=== PATIENT | female | born 1970 | race Caucasian/White ===

== ENCOUNTER 2019-08-07 13:42 | Inpatient (IN) | payer BC ==
[2019-08-01 14:30] LABS: Basophils # (auto) 0 uL; Basophils % (auto) 0.4 % (0.0-2.0); Eosinophils # (auto) 0.1 uL; Eosinophils % (auto) 1.1 % (0.0-7.0); Hematocrit 41.1 % (36.0-46.0); Hemoglobin 13.8 g/dL (12.2-16.2); Lymphocytes # (auto) 2.4 uL; Lymphocytes % (auto) 28.9 % (10.0-50.0); Mean Corpuscular Hemoglobin 30.1 pg (28.0-32.0); Mean Corpuscular Hgb Conc. 33.4 g/dL (32.0-36.0); Monocytes # (auto) 0.5 uL; Monocytes % (auto) 6.4 % (0.0-12.0); Neutrophils # (auto) 5.2 uL; Neutrophils % (auto) 63.2 % (37.0-80.0); Platelet Count (auto) 282 10^3/uL (140-450); Red Blood Cells 4.57 10^6/uL (4.0-5.20); Red Cell Distribution Width 12.7 % (11.8-14.3); White Blood Cell 8.2 10^3/uL (4.4-10.8)
[2019-08-01 14:36] LABS: Urine Amorphous Crystal FEW /hpf (None Seen); Urine Bacteria FEW /hpf (None Seen); Urine Blood Negative /uL (Negative); Urine Mucus FEW (None Seen); Urine Specific Gravity 1.022 (1.001-1.035); Urine WBC 2 /hpf (0 - 5)
[2019-08-01 14:45] LABS: INR 0.96 (0.9-1.15); Partial Thromboplastin Time 29.8 sec (23.64-32.05)
[2019-08-01 14:53] LABS: Albumin 3.6 g/dL (3.4-5.0); Calcium 8.7 mg/dL (8.5-10.1); Potassium 4.3 mmol/L (3.5-5.1)
[2019-08-01 14:56] LABS: BUN/Creatinine Ratio 17.5; Bilirubin, Total 0.3 mg/dL (0.2-1.0); Total Protein 7.6 g/dL (6.4-8.2)
[~2019-08-07] VITALS: Ht 165.1 cm; Wt 95.2 kg
[~2019-08-07 13:42] MED LIST: CYAN100028 SL; ESTR0.1C5 VA; MULT-690 PO; PROB1CAP PO; PROG1CAP2 PO; VITA1CAP15 PO
[2019-08-07] MEDS ORDERED: ceFAZolin 1GM/50ML 100 ML IV ONE (18:31)
[2019-08-07] MEDS ORDERED: METHYLENE BLUE 0.5% 5MG/ML 10ml AMP IV ONE (18:33)
[2019-08-07] MEDS ORDERED: LIDOCAINE W/ EPINEPHRINE 1% 20ML VIAL ONE (18:33)
[2019-08-07] MEDS ORDERED: BUPIVACAINE 0.25% INJ 50ML VIAL ONE (18:33)
[2019-08-07] MEDS ORDERED: fentaNYL CITRATE 5 ML ONE (18:40)
[2019-08-07] MEDS ORDERED: fentaNYL CITRATE 100 MCG/2 ML VL ONE (18:40)
[2019-08-07] MEDS ORDERED: MIDAZOLAM HCL 1MG/1ML-2 ML VIAL ONE (18:40)
[2019-08-07] MEDS ORDERED: MEPERIDINE HCL (25 MG/ML) 1ML VIAL ONE (18:40)
[2019-08-07] MEDS ORDERED: MORPHINE SULF INJ 2 MG/ML SYRINGE 1ML IV PRN ×2 (18:45)
[2019-08-07] MEDS ORDERED: NITROGLYCERIN 0.4 MG SL TAB SL PRN ×2 (18:45)
[2019-08-07] MEDS ORDERED: HYDROcodone-ACET 5/325MG TAB PO PRN (18:45)
[2019-08-07] MEDS ORDERED: ceFAZolin 1GM/50ML 50 ML IV ONE (18:45)
[2019-08-07] MEDS ORDERED: MORPHINE SULFATE 4 MG/ML SYR/VIAL IV PRN ×2 (18:45→19:00)
[2019-08-07] MEDS ORDERED: ACETAMINOPHEN 500 MG TAB PO PRN (18:45)
[2019-08-07] MEDS ORDERED: SUCCINYLCHOLINE CHLORIDE 20 MG/ML 10ML VIAL IV ONE (18:51)
[2019-08-07] MEDS ORDERED: MIDAZOLAM HCL 1MG/1ML-2 ML VIAL IV PRN (19:00)
[2019-08-07] MEDS ORDERED: ePHEDrine SULFATE 50 MG/ML AMP IV PRN (19:00)
[2019-08-07] MEDS ORDERED: ONDANSETRON HCL 4 MG/2 ML VIAL IV PRN (19:00)
[2019-08-07] MEDS ORDERED: LABETALOL HCL 5 MG/ML 4ML SYRINGE IV PRN (19:00)
[2019-08-07] MEDS ORDERED: DexAMETHasone SOD PHOS 10MG/1ML VIAL INJ ONE (19:38)
[2019-08-07] MEDS ORDERED: PROPOFOL 10 MG/ML 20 ML IV ONE (21:17)
[2019-08-07] MEDS ORDERED: GLYCOPYRROLATE 0.2 MG/ML 1ML VIAL ONE (21:29)
[2019-08-07] MEDS ORDERED: NEOSTIGMINE 1 MG/ML INJ (10mg/10ML VIAL) ONE (21:29)
[2019-08-07] MEDS ORDERED: ONDANSETRON HCL 4 MG/2 ML VIAL ONE (21:57)
[2019-08-07] MEDS ORDERED: HYDROmorphone HCL 2 MG/ML VL ONE (22:18)
[2019-08-07] MEDS: HYDROmorphone HCL 2 MG/ML VL IV PRN ×2 (22:19→22:46)
[2019-08-07] MEDS: ONDANSETRON HCL 4 MG/2 ML VIAL IV PRN (23:01)
[2019-08-07] MEDS: SODIUM CHLORIDE 0.9% 1,000 ML IV SCH (23:30)
[2019-08-07 23:33] VITALS: BP 102/68
[2019-08-08] MEDS: SODIUM CHLORIDE 0.9% 1,000 ML IV SCH ×3 (02:21→18:03)
[2019-08-08] MEDS: ONDANSETRON HCL 4 MG/2 ML VIAL IV PRN ×3 (02:42→21:49)
[2019-08-08 03:13] LABS: Basophils # (auto) 0 uL; Basophils % (auto) 0.3 % (0.0-2.0); Eosinophils # (auto) 0 uL; Hematocrit 37.8 % (36.0-46.0); Hemoglobin 12.4 g/dL (12.2-16.2); Lymphocytes # (auto) 0.5 uL; Lymphocytes % (auto) 3.9 % (10.0-50.0); Mean Corpuscular Hemoglobin 29.6 pg (28.0-32.0); Mean Corpuscular Hgb Conc. 32.9 g/dL (32.0-36.0); Mean Corpuscular Volume 89.8 fL (80.0-100.0); Monocytes # (auto) 0.4 uL; Monocytes % (auto) 2.6 % (0.0-12.0); Neutrophils # (auto) 12.5 uL; Neutrophils % (auto) 93.2 % (37.0-80.0); Nucleated Red Blood Cells % 0.1 %; Platelet Count (auto) 240 10^3/uL (140-450); Red Blood Cells 4.21 10^6/uL (4.0-5.20); Red Cell Distribution Width 13.2 % (11.8-14.3); White Blood Cell 13.4 10^3/uL (4.4-10.8)
[2019-08-08] MEDS: PROMETHAZINE HCL 25 MG/ML 1ML IV PRN ×3 (03:34→18:03)
[2019-08-08] MEDS: HYDROmorphone HCL 2 MG/ML VL IV PRN ×5 (03:34→21:49)
[2019-08-08 05:00] VITALS: BP 122/62
[2019-08-08 08:00] VITALS: BP 116/66
[2019-08-08 09:01] VITALS: BP 116/66
[2019-08-08 13:50] VITALS: BP 96/63
[2019-08-08] MEDS ORDERED: KETOROLAC TROMETH 15 mg/ml 1ML VL IV ONE (14:15)
[2019-08-08 16:34] VITALS: BP 104/56
[2019-08-08] MEDS ORDERED: HYDROmorphone HCL 2 MG/ML VL IV PRN ×2 (17:30→17:45)
[2019-08-08] MEDS ORDERED: OXYCODONE W/ ACETAMINOPHEN 5/325MG TABLET PO PRN (17:30)
[2019-08-08] MEDS ORDERED: DOCUSATE SOD 100 MG CAP PO PRN (19:15)
[2019-08-08 21:26] VITALS: BP 108/64
[2019-08-09] MEDS: HYDROmorphone HCL 2 MG/ML VL IV PRN ×5 (00:42→14:47)
[2019-08-09] MEDS: PROMETHAZINE HCL 25 MG/ML 1ML IV PRN ×2 (00:42→06:15)
[2019-08-09] MEDS: SODIUM CHLORIDE 0.9% 1,000 ML IV SCH ×2 (02:17→10:35)
[2019-08-09] MEDS: ONDANSETRON HCL 4 MG/2 ML VIAL IV PRN ×3 (03:31→14:47)
[2019-08-09 05:28] VITALS: BP 128/71
[2019-08-09 09:34] VITALS: BP 119/70
[2019-08-09 14:46] VITALS: BP 107/58
[2019-08-09 16:42] VITALS: BP 157/88
[2019-08-09 17:44] VITALS: BP 157/88
== END 2019-08-09 18:30 | disposition home or self-care (01) | DRG 743 ==
LOC: OVERFLOW 13:42 → EDSTATUS 15:15 → TELE-EAST 23:33 → EAST 08-08 05:16
PROVIDERS: ADMIT Obstetrics & Gynecology; ATTEND Obstetrics & Gynecology
PROC: 0UT7FZZ Resection of Bilateral Fallopian Tubes, Via Natural or Artificial Opening With Percutaneous Endoscopic Assistance (ICD-10-PCS; 2019-08-07)
PROC: 0USG4ZZ Reposition Vagina, Percutaneous Endoscopic Approach (ICD-10-PCS; 2019-08-07)
PROC: 8E0W4CZ Robotic Assisted Procedure of Trunk Region, Percutaneous Endoscopic Approach (ICD-10-PCS; 2019-08-07)
PROC: 0UT9FZZ Resection of Uterus, Via Natural or Artificial Opening With Percutaneous Endoscopic Assistance (ICD-10-PCS; principal; 2019-08-07 18:58)
DX: N73.6 Female pelvic peritoneal adhesions (postinfective) (principal); N81.4 Uterovaginal prolapse, unspecified; Z90.49 Acquired absence of other specified parts of digestive tract; Z82.49 Family history of ischemic heart disease and other diseases of the circulatory system
CPT/HCPCS: 36415; 80053; 81001; 84702; 85025; 85610; 85730; 86850; 86900; 86901; 87086; 97116; 97530; C1765; G0378; J0330; J0690; J1100; J2250; J2405; J2704; J3490

== ENCOUNTER → 2020-04-19 | Day surgery (SDC) | payer BC, OTHER ==
[2020-04-14 15:28] LABS: Urine WBC None Seen /hpf (0 - 5)
[2020-04-14 15:30] LABS: Basophils # (auto) 0 10 ^3/uL (0-0.2); Basophils % (auto) 0.5 % (0.0-2.0); Eosinophils # (auto) 0.1 10 ^3/uL (0-0.8); Eosinophils % (auto) 0.9 % (0.0-7.0); Hematocrit 44.3 % (36.0-46.0); Hemoglobin 14.6 g/dL (12.2-16.2); Lymphocytes # (auto) 2.1 10 ^3/uL (0.4-5.4); Lymphocytes % (auto) 28.9 % (10.0-50.0); Mean Corpuscular Hemoglobin 29.9 pg (28.0-32.0); Mean Corpuscular Volume 90.7 fL (80.0-100.0); Monocytes # (auto) 0.5 10 ^3/uL (0-1.3); Monocytes % (auto) 6.9 % (0.0-12.0); Neutrophils # (auto) 4.6 10 ^3/uL (1.6-8.6); Neutrophils % (auto) 62.8 % (37.0-80.0); Nucleated Red Blood Cells % 0.1 %; Platelet Count (auto) 294 10^3/uL (140-450); Red Blood Cells 4.89 10^6/uL (4.0-5.20); White Blood Cell 7.4 10^3/uL (4.4-10.8)
[2020-04-14 15:46] LABS: Urine Bacteria FEW /hpf (None Seen); Urine Blood Negative /uL (Negative); Urine Specific Gravity 1.011 (1.001-1.035)
[2020-04-14 15:51] LABS: Calcium 9.4 mg/dL (8.5-10.1); Potassium 4.1 mmol/L (3.5-5.1)
[2020-04-14 16:39] LABS: INR 0.98 (0.9-1.15); Partial Thromboplastin Time 30.2 sec (23.0-31.2)
[~2020-04-19] VITALS: Ht 167.6 cm; Wt 75.3 kg
[~2020-04-19] MED LIST changes: +BUPIVACAINE 0.25% INJ 50ML VIAL ONE; +FISHCAP2 PO; +HYDROCORTISONE SOD SUCC 100 MG/2ML INJ VIAL ONE; +HYDROmorphone HCL 2 MG/ML VL IV PRN; +HYDROmorphone HCL 2 MG/ML VL ONE; +KETOROLAC TROMETH 30 MG/ML 1ML VIAL IV ONE; +KETOROLAC TROMETH 30 MG/ML 1ML VIAL ONE; +LIDOCAINE W/ EPINEPHRINE 1 % INJ 30ML ONE; +MIDAZOLAM HCL 1MG/1ML-2 ML VIAL ONE; +ONDANSETRON HCL 4 MG/2 ML VIAL IV PRN; +PROPOFOL 10 MG/ML 20 ML IV ONE; +ceFAZolin 1GM VL ONE; +ceFAZolin 1GM/50ML 100 ML IV ONE; +ePHEDrine SULFATE 50 MG/ML AMP IV PRN; +fentaNYL CITRATE 100 MCG/2 ML VL ONE; +hydrALAZINE HCL 20 MG/ML VL IV PRN
[2020-04-19 11:55] VITALS: BP 131/71
== END | disposition home or self-care (01) ==
LOC: SUR 08:33
PROVIDERS: ATTEND Obstetrics & Gynecology
DX: N81.11 Cystocele, midline (principal); N39.3 Stress incontinence (female) (male); Z79.899 Other long term (current) drug therapy; Z88.1 Allergy status to other antibiotic agents; Z90.49 Acquired absence of other specified parts of digestive tract; Z90.710 Acquired absence of both cervix and uterus; Z20.828 Contact with and (suspected) exposure to other viral communicable diseases; Z98.890 Other specified postprocedural states
CPT/HCPCS: 36415; 57106; 57220; 57240; 57288; 80048; 81001; 85025; 85610; 85730; 87086; 88305; C1771; J0690; J1170; J1720; J1885; J2001; J2250; J2704; J3010; J3490; Q4170; U0003

== ENCOUNTER 2024-02-15 18:52 | Emergency (ER) | payer BC, OTHER ==
[~2024-02-15] VITALS: Ht 165.1 cm; Wt 85.2 kg
[~2024-02-15 18:52] MED LIST changes: -BUPIVACAINE 0.25% INJ 50ML VIAL ONE; -HYDROCORTISONE SOD SUCC 100 MG/2ML INJ VIAL ONE; -HYDROmorphone HCL 2 MG/ML VL IV PRN; -HYDROmorphone HCL 2 MG/ML VL ONE; -KETOROLAC TROMETH 30 MG/ML 1ML VIAL IV ONE; -KETOROLAC TROMETH 30 MG/ML 1ML VIAL ONE; -LIDOCAINE W/ EPINEPHRINE 1 % INJ 30ML ONE; -MIDAZOLAM HCL 1MG/1ML-2 ML VIAL ONE; -ONDANSETRON HCL 4 MG/2 ML VIAL IV PRN; -PROG1CAP2 PO; +PROG200C21 PO; -PROPOFOL 10 MG/ML 20 ML IV ONE; -ceFAZolin 1GM VL ONE; -ceFAZolin 1GM/50ML 100 ML IV ONE; -ePHEDrine SULFATE 50 MG/ML AMP IV PRN; -fentaNYL CITRATE 100 MCG/2 ML VL ONE; -hydrALAZINE HCL 20 MG/ML VL IV PRN
[2024-02-15 20:38] VITALS: BP 134/73; PULSE 70; RESP 16; TEMP 97.7; O2SAT 98
[2024-02-15] MEDS: SODIUM CHLORIDE 0.9% 1,000 ML IV ONE (20:59)
[2024-02-15] MEDS: ONDANSETRON HCL 4 MG/2 ML VIAL IV ONE (21:13)
[2024-02-15 21:44] LABS: Basophils # (auto) 0 10 ^3/uL (0-0.2); Basophils % (auto) 0.3 % (0.0-2.0); Eosinophils # (auto) 0.5 10 ^3/uL (0-0.8); Eosinophils % (auto) 5.8 % (0.0-7.0); Hematocrit 44.4 % (36.0-46.0); Lymphocytes % (auto) 31.9 % (10.0-50.0); Mean Corpuscular Hemoglobin 30.7 pg (28.0-32.0); Mean Corpuscular Hgb Conc. 33.7 g/dL (32.0-36.0); Monocytes # (auto) 0.7 10 ^3/uL (0-1.3); Monocytes % (auto) 7.1 % (0.0-12.0); Neutrophils # (auto) 5.1 10 ^3/uL (1.6-8.6); Neutrophils % (auto) 54.9 % (37.0-80.0); Platelet Count (auto) 248 10^3/uL (140-450); Red Blood Cells 4.88 10^6/uL (4.0-5.20); White Blood Cell 9.4 10^3/uL (4.4-10.8)
[2024-02-15 21:46] LABS: Urine Bacteria MOD /hpf (None Seen); Urine Blood TRACE /uL (Negative); Urine Clarity Turbid (Clear); Urine Color Yellow (Yellow); Urine Hyaline Cast FEW /lpf (0 - 2); Urine Mucus FEW (None Seen); Urine Protein, UAD 1+ (Negative); Urine Specific Gravity 1.033 (1.001-1.035); Urine Urobilinogen 3 mg/dL (Negative); Urine WBC 6 /hpf (0 - 5)
[2024-02-15] MEDS ORDERED: LOPE7.5C PO (22:01)
[2024-02-15] MEDS ORDERED: ZOFR4T PO (22:01)
[2024-02-15] MEDS ORDERED: AUG875T PO (22:01)
[2024-02-15] MEDS ORDERED: METR-344 PO (22:01)
[2024-02-15 22:03] LABS: Alanine Aminotransferase 19 U/L (7-40); Albumin 4.7 g/dL (3.2-4.8); Alkaline Phosphatase 116 U/L (46-116); Anion Gap 6 (5-15); Aspartate Aminotransferase 13 U/L (13-40); BUN/Creatinine Ratio 17.8 (10.0-20.0); Blood Urea Nitrogen 16 mg/dL (9-23); Carbon Dioxide 27 mmol/L (20-30); Chloride 107 mmol/L (98-107); Glucose 87 mg/dL (74-106); Potassium 3.7 mmol/L (3.5-5.1); Sodium 140 mmol/L (136-145)
[2024-02-15 22:04] LABS: Bilirubin, Total 0.4 mg/dL (0.2-1.0); Total Protein 7.7 g/dL (5.7-8.2)
[2024-02-15 22:15] LABS: Lipase 38 U/L (12-53)
== END 2024-02-15 22:57 | disposition home or self-care (01) ==
LOC: ER 18:52
DX: R11.10 Vomiting, unspecified (principal); R19.7 Diarrhea, unspecified; Z88.8 Allergy status to other drugs, medicaments and biological substances; Z79.899 Other long term (current) drug therapy; Z90.49 Acquired absence of other specified parts of digestive tract; Z90.710 Acquired absence of both cervix and uterus
CPT/HCPCS: 36415; 74176; 80053; 81001; 83690; 85025; 96361; 96374; 99285; J2405; J7030